=== PATIENT | male | born 1995 | race Caucasian/White ===

== ENCOUNTER 2020-01-11 12:56 | Emergency (ER) | payer SELFPAY ==
[~2020-01-11] VITALS: Ht 175.3 cm; Wt 80.0 kg
[2020-01-11 15:55] VITALS: BP 116/50
== END 2020-01-11 18:00 | disposition left against medical advice (07) ==
LOC: ER 12:56 → EDBD 12:56 → ER 18:00
DX: T14.8XXA Other injury of unspecified body region, initial encounter (principal); X58.XXXA Exposure to other specified factors, initial encounter; Z53.21 Procedure and treatment not carried out due to patient leaving prior to being seen by health care provider

== ENCOUNTER 2020-02-13 22:58 | Emergency (ER) | payer SELFPAY ==
[~2020-02-13] VITALS: Ht 177.8 cm; Wt 82.0 kg
[2020-02-13] MEDS ORDERED: SODIUM CHLORIDE 0.9% 1,000 ML IV ONE (23:16)
[2020-02-13] MEDS ORDERED: LEVETIRACETAM 1000MG/100ML 100 ML IV ONE (23:30)
[2020-02-13 23:57] LABS: BASOPHILS % 0.4 % (0.0-2.0); EOSINOPHILS % 1.8 % (0.0-5.0); HEMATOCRIT. 42.4 % (42.0-52.0); HEMOGLOBIN. 14.5 g/dL (14.0-18.0); LYMPHOCYTES % 34.3 % (20.0-50.0); MEAN CORPUSCULAR HEMOGLOBIN 31.2 pg (28.0-32.0); MEAN CORPUSCULAR VOLUME 91.3 fL (80.0-94.0); MEAN PLATELET VOLUME 9.2 fl (7.4-10.4); MONOCYTES % 9.3 % (2.0-8.0); NEUTROPHILS % 54.2 % (40.0-76.0); PLATELET 210 x1000/uL (130-400); RED BLOOD CELL COUNT 4.65 mill/uL (4.7-6.1); RED CELL DISTRIBUTION WIDTH 13.4 % (11.6-14.6)
[2020-02-14 00:01] LABS: CHLORIDE 105 mEq/L (98-107)
[2020-02-14 00:59] LABS: ETHANOL BLOOD < 10 mg/dL
[2020-02-14 04:45] VITALS: BP 124/88
== END 2020-02-14 05:22 | disposition home or self-care (01) ==
LOC: ER 22:58
DX: G40.909 Epilepsy, unspecified, not intractable, without status epilepticus (principal); Z87.820 Personal history of traumatic brain injury; Z98.890 Other specified postprocedural states
CPT/HCPCS: 36415; 80053; 80320; 85025; 96365; 96366; 99284; J1953; J7030; G0480

== ENCOUNTER 2021-11-07 21:04 | Emergency (ER) | payer MEDICAID ==
[~2021-11-07] VITALS: Ht 180.3 cm; Wt 96.0 kg
[2021-11-07 21:07] VITALS: BP 144/94
[2021-11-07] MEDS ORDERED: ACETAMINOPHEN 325MG TABLET PO ONE (21:45)
[2021-11-07] MEDS ORDERED: KETOROLAC 60MG/2ML VIAL IM ONE (21:45)
== END 2021-11-07 23:44 | disposition home or self-care (01) ==
LOC: ER 21:04
DX: R51.9 Headache, unspecified (principal); M79.602 Pain in left arm; M79.662 Pain in left lower leg; G40.909 Epilepsy, unspecified, not intractable, without status epilepticus; Z87.820 Personal history of traumatic brain injury; W01.0XXA Fall on same level from slipping, tripping and stumbling without subsequent striking against object, initial encounter; Y93.89 Activity, other specified; Y92.018 Other place in single-family (private) house as the place of occurrence of the external cause
CPT/HCPCS: 96372; 99283; J1885